=== PATIENT | male | born 1995 | race Caucasian/White ===

== ENCOUNTER 2017-08-04 05:17 | Emergency (ER) | payer SELFPAY ==
[2017-08-04] MEDS ORDERED: LORazepam 2 MG/ML VIAL ONE (05:22)
[2017-08-04 05:28] VITALS: BP 153/72; PULSE 129; RESP 16; TEMP 97.8; O2SAT 100
--- NOTE | 2017-08-04 05:40 | PD ---
HPI . psychedelic ingestion Chief Complaint: Alcohol/Drug Intoxication Time Seen by Provider: 05:23 Travel History International Travel<30 days: No Contact w/Intl Traveler<30days: No Traveled to known affect area: No History of Present Illness HPI pt took LSD he found in his dorm room tonight 4 hrs ago . He then recently developed severe pounding heart rate felt his heart pounding in his chest and call 911 , bibems hr 160 SINUS TACHY Pt denies coingestant and denies stimulant no cocaine no adderall no meth. The heart racing he reports is only to LSD ingestant. Denies N/V/D no chest pain only pounding palpitations . he took nothing to stop the symptoms PFSH Social History Tobacco Use: No Allergies-Medications (Allergen,Severity, Reaction): Coded Allergies: No Known Allergies (Unverified , 08/04/17) Reported Meds & Prescriptions Reported Meds & Active Scripts Active Propranolol (Propranolol HCl) 10 Mg Tab 10 Mg PO Q8HR Review of Systems Except as stated in HPI: all other systems reviewed are Neg Psychiatric: Positive: Anxiety Physical Exam Narrative GENERAL: Awake alert appears anxious heart rate is 160 sinus tach on the monitor SKIN: Warm and dry. HEAD: Atraumatic. Normocephalic. EYES: Pupils equal and round. No scleral icterus. No injection or drainage. ENT: No nasal bleeding or discharge. Mucous membranes pink and moist. NECK: Trachea midline. No JVD. CARDIOVASCULAR: Regular rate and rhythm. Heart rate 160 on the monitor EKG sinus tach rate of 132 RESPIRATORY: No accessory muscle use. Clear to auscultation. Breath sounds equal bilaterally. GASTROINTESTINAL: Abdomen soft, non-tender, nondistended. Hepatic and splenic margins not palpable. MUSCULOSKELETAL: Extremities without clubbing, cyanosis, or edema. No obvious deformities. NEUROLOGICAL: Awake and alert. No obvious cranial nerve deficits. Motor grossly within normal limits. Five out of 5 muscle strength in the arms and legs. Normal speech. PSYCHIATRIC: Appropriate mood and affect; insight and judgment normal. Data Data Last Documented VS Orders Orders Lorazepam Inj (Ativan Inj) (08/04/17 05:22) Lorazepam Inj (Ativan Inj) (08/04/17 06:00) Propranolol (Inderal) (08/04/17 06:00) Sodium Chlor 0.9% 1000 Ml Inj (Ns 1000 M (08/04/17 06:00) Electrocardiogram (08/04/17 05:24) Ed Discharge Order (08/04/17 07:22) MDM Medical Decision Making Medical Screen Exam Complete: Yes Emergency Medical Condition: Yes Differential Diagnosis Differential diagnosis includes polysubstance ingestion versus stimulant ingestion versus LSD ingestion versus alcohol plus ingestion patient denies all the above except was the LSD Narrative Course IV Ativan 1 mg 2 as well as propranolol 10 mg p.o. heart rate now down to 105 will re-eval . RE-EXAM now heart rate normal is normal and pt feels better girlfriend here bedside and will stay with him at home and he is safe for discharge Diagnosis Primary Impression: Overdose of LSD Qualified Codes: T40.8X1A - Poisoning by lysergide [lsd], accidental ( unintentional), initial encounter Patient Instructions: Adverse Drug Reaction (ED), General Instructions Scripts Propranolol (Propranolol) 10 Mg Tab 10 MG PO Q8HR, #10 TAB 0 Refills Prov: Christos Mcgee MD 08/04/17 Disposition: 01 DISCHARGE HOME Condition: Good Christos Mcgee MD Aug 04, 2017 05:40
[2017-08-04] MEDS ORDERED: PROPRANOLOL HCL 10 MG TAB PO ONE (06:00)
[2017-08-04] MEDS ORDERED: SODIUM CHLOR 0.9% 1000 ML INJ 1,000 ML IV ONE (06:00)
[2017-08-04] MEDS ORDERED: LORazepam 2 MG/ML VIAL IV PUSH ONE (06:00)
[2017-08-04] MEDS ORDERED: PROP10TA6 PO (07:19)
[2017-08-04 07:43] VITALS: BP 145/88
--- NOTE | 2017-08-04 13:38 | EKG ---
Date Performed: 08/04/2017 Time Performed: 05:24:06 PTAGE: 21 years EKG: SINUS TACHYCARDIA NONSPECIFIC ST & T-WAVE ABNORMALITY ABNORMAL RHYTHM ECG NO PREVIOUS TRACING DOCTOR: Jono Fisher Interpretating Date/Time 08/04/2017 13:36:02
== END 2017-08-04 08:04 | disposition home or self-care (01) ==
LOC: NEPE 05:17
DX: T40.8X1A Poisoning by lysergide [LSD], accidental (unintentional), initial encounter (principal); R00.0 Tachycardia, unspecified
CPT/HCPCS: 93005; 96374; 99284; J2060; J7030